=== PATIENT | male | born 1980 | race Hispanic/Latino ===

== ENCOUNTER 2020-09-18 22:54 | Emergency (ER) | payer OTHER ==
[~2020-09-18] VITALS: Ht 160 cm; Wt 93.4 kg
[2020-09-19 00:07] VITALS: BP 112/65
[2020-09-19 03:26] VITALS: BP 116/72
== END 2020-09-19 03:35 | disposition home or self-care (01) ==
LOC: EDH 22:54
DX: U07.1 COVID-19 (principal); J06.9 Acute upper respiratory infection, unspecified; I10 Essential (primary) hypertension
CPT/HCPCS: 87635; 99283; C9803